=== PATIENT | female | born 2000 | race Caucasian/White ===

== ENCOUNTER 2021-06-28 23:02 | Emergency (ER) | payer OTHER ==
[2021-06-28] MEDS ORDERED: KEFLEX250 MG PO (23:55)
== END 2021-06-29 00:08 | disposition home or self-care (01) ==
LOC: FER 23:02
DX: S61.012A Laceration without foreign body of left thumb without damage to nail, initial encounter (principal); Z23 Encounter for immunization; W26.0XXA Contact with knife, initial encounter; Y93.G1 Activity, food preparation and clean up
CPT/HCPCS: 90471; 90715

== ENCOUNTER 2022-01-29 20:55 | Emergency (ER) | payer OTHER ==
[~2022-01-29 20:55] MED LIST: KEFLEX250 MG PO
[2022-01-29 22:32] LABS: BASOPHIL 0.2 % (0-2); EOSINOPHIL 0.6 % (0-5); HCT 39.4 % (37.0-47.0); HGB 12.9 g/dl (12.5-16.0); LYMPHOCYTE 17.8 % (15-48); MCH 26.9 pg (25.0-31.0); MCHC 32.7 g/dL (32.0-36.0); MCV 82.3 fL (78.0-100.0); MONOCYTE 4.6 % (0-12); NEUTROPHIL 76.6 % (41-80); NRBC 0; PLT 325 K/uL (150-400); RBC 4.79 M/uL (4.20-5.40); WBC 14.6 K/uL (4.0-10.5)
[2022-01-29 22:44] LABS: ALBUMIN 3.7 g/dL (3.4-5.0); BILIRUBIN - TOTAL 0.9 mg/dL (0.2-1.0); BUN/CREAT RATIO (CALC) 19.1 RATIO; CREATININE 0.68 mg/dL (0.51-0.95); GLOBULIN (CALCULATION) 4.2 g/dL; POTASSIUM 3.7 mmol/L (3.5-5.1); TOTAL PROTEIN 7.9 g/dL (6.4-8.2)
[2022-01-29 23:56] LABS: BILIRUBIN NEGATIVE (NEGATIVE); BLOOD NEGATIVE Ery/uL (NEGATIVE); CLARITY CLEAR (CLEAR); COLOR YELLOW (YELLOW); GLUCOSE (U) NORMAL (NORMAL); LEUKOCYTES NEGATIVE Leu/uL (NEGATIVE); NITRITE NEGATIVE (NEGATIVE); PROTEIN NEGATIVE (NEGATIVE); SPECIFIC GRAVITY >=1.030 (1.001-1.030); UROBILINOGEN 0.2 mg/dL (0.2-1.0)
[2022-01-30] MEDS ORDERED: ONDANSETRON ODT4 MG PO (00:32)
== END 2022-01-30 01:13 | disposition home or self-care (01) ==
LOC: FER 20:55
PROVIDERS: Internal Medicine
DX: O21.0 Mild hyperemesis gravidarum (principal); O16.1 Unspecified maternal hypertension, first trimester; Z3A.08 8 weeks gestation of pregnancy
CPT/HCPCS: 36415; 80053; 81003; 83690; 85025; J2405; J7120